=== PATIENT | female | born 1945 | race Caucasian/White ===

== ENCOUNTER → 2016-12-31 | Outpatient (CLI) | payer MEDICARE, OTHER ==
[~2016-12-31] MED LIST: ACETAMINOPHEN PO; HYDROCODON-ACE1 EAC9 PO; LEVAQUIN PO; LITE COAT ASPI325 M2 PO; LORTAB 7.51 TAB PO; MULTI VITAMIN1 EACH PO; NICOTINE T1 PATCH .2 TOP; NORCO1 TAB 10/3 PO; NORVASC PO; PROMETHAZINE HC25 MG; PROMETRIUM PO; PROTONIX PO; TRIAMTERENE/HCTZ; ZOCOR PO; ZOFRAN PO
--- NOTE | ~2016-12-31 | MY11 ---
[facility] A Service [facility] RADIOLOGY TEXT RESULTS PATIENT: LENORA WASHINGTON LOCATION: [facility] : 43 UNIT #: [id number] AGE: [address]: Zander Snowden MD SEX: F ORDER DR: [id number] [place] [id number] O MR#: [id number] Acc #: [id number] NAME: LENORA WASHINGTON : 1945 SEX: F STUDY DATE/TIME: 12/31/2016 11:21 UNIT: [facility] ROOM: STUDY DESCRIPTION: MY Mammogram Screening Dig Harjinder Attending Physician: Zander Snowden M.D. Referring Physician: Zander Snowden M.D. Ordering Physician: Zander Snowden M.D. Primary Care Physician: Zander Snowden M.D. MEDICAL IMAGING REPORT This report is preliminary unless electronic signature is present. EXAM Screening mammogram, 12/31/2016. HISTORY 71-year-old with no personal or family history of breast cancer. No current complaints. FINDINGS Routine digital screening views of both breasts were obtained. The study was reviewed with an FDA-approved CAD device. No comparison studies can be located. The breast parenchyma shows scattered fibroglandular densities. No suspicious masses or microcalcifications are seen. There are benign intramammary lymph nodes in both upper outer quadrants. There is a benign calcification in each breast, as well. IMPRESSION Benign mammogram. Routine screening in 1 year is recommended. Patients over the age of 40 are entered into a reminder system with target due date for the next mammogram. A result letter will also be sent to the patient. BIRADS: 2 Benign finding. Dictated by... Floyd Enciso Jr., M.D. [facility] A Service [facility] RADIOLOGY TEXT RESULTS PATIENT: LENORA WASHINGTON LOCATION: [facility] : 43 UNIT #: [id number] AGE: [address]: Zander Snowden MD SEX: F ORDER DR: THIS IS AN ELECTRONICALLY VERIFIED REPORT Floyd Enciso Jr., M.D. at 12/31/2016 5:00 PM XAVIER/edwina TD: 12/31/2016 14:20 JOB #: [id number] MEDICAL IMAGING REPORT
== END | disposition home or self-care (01) ==
LOC: SMAM 10:32
DX: Z12.31 Encounter for screening mammogram for malignant neoplasm of breast (principal)
CPT/HCPCS: G0202